=== PATIENT | female | born 1945 | race Caucasian/White ===

== ENCOUNTER → 2024-07-25 | Outpatient (REF) | payer MEDICARE, SELFPAY ==
[2024-07-25 09:07] LABS: Hematocrit 40.8 % (37-47); Hemoglobin 12.6 g/dL (12.0-15.0); Mean Corp Hgb Conc 30.9 g/dL (32-36); Mean Corpuscular Hgb 27.2 pg (27.0-32.0); Mean Corpuscular Volume 87.9 fL (81-99); Mean Platelet Vol. 9.3 fl (6.2-12.0); Platelet Count 368 K/mm3 (150-450); RBC Distribution Width CV 16.2 % (11.6-14.6); RBC Distribution Width SD 52.3 fl (35.1-43.9); Red Blood Count 4.64 M/mm3 (4.2-5.4); White Blood Count 9.1 K/mm3 (4.4-11.0)
[2024-07-25 09:42] LABS: ALB/GLOB Ratio 1.1 RATIO (0.9-2.4); AST(SGOT) 11 U/L (15-37); Alanine Aminotransfer ALT/SGPT 9 U/L (13-56); Albumin, Serum 3.4 g/dL (3.2-5.0); Alkaline Phosphatase 55 U/L (45-117); Anion Gap 8 (5-15); BUN 19 mg/dL (7-18); BUN/Creat Ratio 28.7 RATIO (10-20); Chloride 111 mmol/L (98-107); Creatinine, Serum 0.66 mg/dL (0.55-1.02); EST Glomerular Filtration Rate 91 mL/min (>60); Est Glom Filt Rate - Afr Amer 110 mL/min (>60); Glucose 87 mg/dL (74-106); Potassium 3.3 mmol/L (3.5-5.1); Protein, Total 6.4 g/dL (6.4-8.2); Sodium Level 144 mmol/L (136-145)
== END ==
LOC: OLS.ACW100 05:00
PROVIDERS: Visit Provider Internal Medicine
DX: I63.532 Cerebral infarction due to unspecified occlusion or stenosis of left posterior cerebral artery (principal); G93.41 Metabolic encephalopathy; F33.0 Major depressive disorder, recurrent, mild; C50.411 Malignant neoplasm of upper-outer quadrant of right female breast
CPT/HCPCS: 36415; 80053; 85027

== ENCOUNTER → 2025-03-27 05:00 | Outpatient (REF) | payer MEDICARE, SELFPAY ==
--- OUTSIDE RECORDS SUMMARY | 2025-03-27 04:12 | XMS RPT_ITS | CCD ---
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 Role Phone Mack Olivares Attending Unavailable Problems Problem Classification Problem Date Documented Da te Episodic/Chronic Acute cerebrovascular disease (1 source) Cerebral infarction due to unspecified occlusion or stenosis of left posterior cerebral artery; Translations: [Cerebral infarction due to unspecified occlusion or stenosis of left posterior cerebral artery] Onset: 09-13-2024 Chronic Cancer of breast (1 source) Malignant neoplasm of upper-outer quadrant of right female breast; Translations: [Malignant neoplasm of upper-outer quadrant of right female breast] Onset: 09-13-2024 Chronic Mood disorders (1 source) Major depressive disorder, recurrent, mild; Translations: [Major depressive disorder, recurrent, mild] Onset: 09-13-2024 Chronic Other nervous system disorders (1 source) Metabolic encephalopathy; Translations: [Metabolic encephalopathy] Onset: 09-13-2024 Chronic Encounters Encounter Date Encounter Type Care Provider Facility Start: 07-25-2024 End: 07-25-2024 ambulatory Mack MALIK Facility:[facility] Payers Date Payer Category Payer Medicare [id number] 2024 Self-pay Unknown [id number] Summary Purpose Family History No Family History Records Found Advance Directives No Advanced Directives Records Found Additional Source Comments INFORMATION SOURCE (unrecogn ized section and content) DATE CREATED AUTHOR 09/16/2024 [facility] FOR RECORDS PERTAINING TO PATIENTS WHO ARE OR HAVE BEEN ENROLLED IN A CHEMICAL DEPENDENCY/SUBSTANCEABUSE PROGRAM, SOME INFORMATION MAY BE OMITTED. This clinical summary was aggregated from multiple sources. Caution should be exercised in using it in the provision of clinical care. This summary normalizes information from multiple sources, and as a consequence, information in this document may materially change the coding, format and clinical context of patient data. In addition, data may be omitted in some cases. CLINICAL DECISIONS SHOULD BE BASED ON THE PRIMARY CLINICAL RECORDS. [facility] [employer] [facility]. provides no warranty or guarantee of the accuracy or completeness of information in this document.
[2025-03-27 08:58] LABS: Hematocrit 25.3 % (37-47); Hemoglobin 8.1 g/dL (12.0-15.0); Mean Corpuscular Hgb 29.2 pg (27.0-32.0); Mean Corpuscular Volume 91.3 fL (81-99); Mean Platelet Vol. 8.8 fl (6.2-12.0); Platelet Count 516 K/mm3 (150-450); RBC Distribution Width CV 16.1 % (11.6-14.6); RBC Distribution Width SD 52.3 fl (35.1-43.9); Red Blood Count 2.77 M/mm3 (4.2-5.4); White Blood Count 8.8 K/mm3 (4.4-11.0)
[2025-03-27 09:22] LABS: ALB/GLOB Ratio 1.7 RATIO (0.9-2.4); AST(SGOT) 23 U/L (<=31); Alanine Aminotransfer ALT/SGPT < 5 U/L (<=34); Albumin, Serum 3.6 g/dL (3.4-4.8); Alkaline Phosphatase 52 U/L (35-104); Anion Gap 10 (5-15); BUN 10 mg/dL (4-19); BUN/Creat Ratio 16.8 RATIO (10-20); Calcium,Total 8.6 mg/dL (7.6-11.0); Carbon Dioxide 23.7 mmol/L (21.0-32.0); Chloride 107 mmol/L (98-108); Creatinine, Serum 0.58 mg/dL (0.70-1.20); EST Glomerular Filtration Rate 92 (>60); Globulin 2.1 g/dL (2.2-4.2); Glucose 94 mg/dL (70-99); Potassium 3.7 mmol/L (3.3-5.1); Protein, Total 5.7 g/dL (5.9-8.4); Sodium Level 140 mmol/L (133-145); Thyroid Stim Hormone (TSH) 0.657 uIU/mL (0.300-4.200); Total Bilirubin 0.83 mg/dL (0.00-1.30)
[2025-03-28 08:24] LABS: Color, Urine Yellow (Yellow); Glucose, Dipstick Normal (Normal); Ketone-Dipstick Negative (Negative); Leukocyte Esterase-Dipstick 500 /ul (Negative); Nitrite-Dipstick Negative (Negative); Occult Blood-Urine 25 /ul (Negative); Protein-Dipstick 30 mg/dl (Negative); Urine Bilirubin Dipstick Negative (Negative); Urine Clarity Sl. Cloudy (Clear); Urine Urobilinogen 4 mg/dl (Normal); Urine pH 6.5 (5.0 - 8.0)
== END ==
LOC: OLS.ACW400 05:00
PROVIDERS: Visit Provider Internal Medicine
DX: I63.532 Cerebral infarction due to unspecified occlusion or stenosis of left posterior cerebral artery (principal); G93.41 Metabolic encephalopathy; F33.0 Major depressive disorder, recurrent, mild; C50.411 Malignant neoplasm of upper-outer quadrant of right female breast
CPT/HCPCS: 36415; 80053; 81002; 84443; 85027; 87086; 87088

== ENCOUNTER → 2025-04-04 05:00 | Outpatient (REF) | payer MEDICARE, SELFPAY ==
--- OUTSIDE RECORDS SUMMARY | 2025-04-04 04:22 | XMS RPT_ITS | CCD ---
Author Organization [facility] CliniSymi Care Team Providers Care Materials Management Manager Name Role Phone Mack Olivares Attending Unavailable Mack Olivares Attending Unavailable Problems Problem Classification [...] Date Encounter Type Care Provider Facility Start: 03-27-2025 ambulatory Mack MALIK Faci lity:[facility] Start: 07-25-2024 End: 07-25-2024 ambulatory Mack MALIK Facility:[facility] Payers Date Payer Category Payer Medicare [id number] 2024 Self-pay Unknown [id number] Unknown [id number] Summary Purpose Family History No Family History Records Found Advance Directives No Advanced Directives Records Found Additional Source Comments INFORMATION SOURCE (unrecogn ized section and content) DATE CREATED AUTHOR 03/28/2025 [facility] FOR RECORDS PERTAINING TO PATIENTS WHO ARE [...] BE BASED ON THE PRIMARY CLINICAL RECORDS. [facility]. provides no warranty or guarantee of the accuracy or completeness of information in this document.
--- OUTSIDE RECORDS SUMMARY | 2025-04-04 04:22 | XMS RPT_ITS | CCD ---
Author Organization [facility] CliniSyde Care Team Providers Care [employer] Advisor Name Role Phone Mack Olivares Attending Unavailable [...] Facility Start: 03-27-2025 ambulatory Mack MALIK Faci lity:[facility] Start: 07-25-2024 End: 07-25-2024 ambulatory Mack MALIK Facility:[facility] Payers Date Payer Category Payer Medicare [id number] 2024 Self-pay Unknown [id number] Unknown [id number] Summary Purpose Family History No Family History Records Found Advance Directives No Advanced Directives Records Found Additional Source Comments INFORMATION SOURCE (unrecogn ized section and content) DATE CREATED AUTHOR 03/28/2025 [facility] FOR RECORDS PERTAINING TO PATIENTS WHO ARE [...] BE BASED ON THE PRIMARY CLINICAL RECORDS. [facility]. provides no warranty or guarantee of the accuracy or completeness of information in this document.
[2025-04-04 07:03] LABS: Hemoglobin 8.4 g/dL (12.0-15.0); Mean Corp Hgb Conc 31.1 g/dL (32-36); Mean Corpuscular Hgb 29.1 pg (27.0-32.0); Mean Corpuscular Volume 93.4 fL (81-99); Mean Platelet Vol. 9.1 fl (6.2-12.0); Platelet Count 501 K/mm3 (150-450); RBC Distribution Width CV 17.4 % (11.6-14.6); RBC Distribution Width SD 59.2 fl (35.1-43.9); Red Blood Count 2.89 M/mm3 (4.2-5.4); White Blood Count 7.8 K/mm3 (4.4-11.0)
[2025-04-04 07:34] LABS: Anion Gap 10 (5-15); BUN 14 mg/dL (4-19); BUN/Creat Ratio 24.7 RATIO (10-20); Calcium,Total 8.6 mg/dL (7.6-11.0); Carbon Dioxide 23.6 mmol/L (21.0-32.0); Chloride 108 mmol/L (98-108); Creatinine, Serum 0.58 mg/dL (0.70-1.20); EST Glomerular Filtration Rate 92 (>60); Glucose 87 mg/dL (70-99); Potassium 3.9 mmol/L (3.3-5.1); Sodium Level 141 mmol/L (133-145); Vitamin B12 686 pg/mL (180-914)
[2025-04-04 07:51] LABS: Iron 43 ug/dL (50-170); Iron Binding Capacity,Unsat 195 ug/dL (228-428)
[2025-04-04 08:05] LABS: Iron Binding Capacity,Total 238 ug/dL (250-450); PERCENT IRON SATURATION 18.1 % (13-59)
== END ==
LOC: OLS.ACW400 05:00
PROVIDERS: Visit Provider Internal Medicine
DX: I63.532 Cerebral infarction due to unspecified occlusion or stenosis of left posterior cerebral artery (principal); G93.41 Metabolic encephalopathy; C50.411 Malignant neoplasm of upper-outer quadrant of right female breast; F33.0 Major depressive disorder, recurrent, mild
CPT/HCPCS: 36415; 80048; 82607; 82746; 83540; 83550; 85027

== ENCOUNTER → 2025-04-27 14:30 | Outpatient (REF) | payer MEDICARE, SELFPAY | LOC: OLS.ACW400 14:30 | PROVIDERS: Visit Provider Internal Medicine | DX: I63.532 Cerebral infarction due to unspecified occlusion or stenosis of left posterior cerebral artery (principal); G93.41 Metabolic encephalopathy; R26.81 Unsteadiness on feet; R53.1 Weakness; R27.9 Unspecified lack of coordination | CPT/HCPCS: 82274 ==

== ENCOUNTER → 2025-05-02 11:30 | Outpatient (REF) | payer MEDICARE, SELFPAY | LOC: OLS.ACW400 11:30 | PROVIDERS: Visit Provider Internal Medicine | DX: I63.532 Cerebral infarction due to unspecified occlusion or stenosis of left posterior cerebral artery (principal); G93.41 Metabolic encephalopathy; R26.81 Unsteadiness on feet; R53.1 Weakness; R27.9 Unspecified lack of coordination | CPT/HCPCS: 82274 ==

== ENCOUNTER → 2025-05-08 05:00 | Outpatient (REF) | payer MEDICARE, SELFPAY ==
--- OUTSIDE RECORDS SUMMARY | 2025-05-08 04:11 | XMS RPT_ITS | CCD ---
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 Name Role Phone Mack Olivares Attending Unavailable Mack Olivares Attending Unavailable Mack Olivares Attending Unavailable Mack Olivares Attending Unavailable Mack Olivares Attending Unavailable Problems Problem Classification Problem Date Documented Da te Episodic/Chronic Acute cerebrovascular disease (2 sources) Cerebral infarction due to unspecified occlusion or stenosis of left posterior cerebral artery; Translations: [Cerebral infarction due to unspecified occlusion or stenosis of left posterior cerebral artery] Onset: 09-13-2024 Chronic Cancer of breast (2 sources) Malignant neoplasm of upper-outer quadrant of right female breast; Translations: [Malignant neoplasm of upper-outer quadrant of right female breast] Onset: 09-13-2024 Chronic Mood disorders (1 source) Major depressive disorder, recurrent, mild; Translations: [Major depressive disorder, recurrent, mild] Onset: 09-13-2024 Chronic Other nervous system disorders (2 sources) Metabolic encephalopathy; Translations: [Metabolic encephalopathy] Onset: 09-13-2024 Chronic Encounters Encounter Date Encounter Type Care Provider Facility Start: 05-02-2025 ambulatory Mack MALIK Faci lity:[facility] Start: 04-27-2025 ambulatory Mack MALIK Faci lity:[facility] Start: 04-04-2025 ambulatory Mack MALIK Faci lity:[facility] Start: 03-27-2025 ambulatory Mack MALIK Faci lity:[facility] Start: 07-25-2024 End: 07-25-2024 ambulatory Mack MALIK Facility:[facility] Payers Date Payer Category Payer Medicare [id number] 2024 Self-pay Unknown [id number] Unknown [id number] Unknown [id number] Unknown [id number] Unknown [id number] Summary Purpose Family History No Family History Records Found Advance Directives No Advanced Directives Records Found Additional Source Comments INFORMATION SOURCE (unrecogn ized section and content) DATE CREATED AUTHOR 05/06/2025 [facility] FOR RECORDS PERTAINING TO PATIENTS WHO ARE [...] BE BASED ON THE PRIMARY CLINICAL RECORDS. [employer]. provides no warranty or guarantee of the accuracy or completeness of information in this document.
[2025-05-08 08:06] LABS: Hematocrit 35.0 % (37-47); Hemoglobin 11.1 g/dL (12.0-15.0); Mean Corp Hgb Conc 31.7 g/dL (32-36); Mean Corpuscular Volume 90.2 fL (81-99); Mean Platelet Vol. 9.1 fl (6.2-12.0); Platelet Count 425 K/mm3 (150-450); RBC Distribution Width CV 15.6 % (11.6-14.6); RBC Distribution Width SD 51.7 fl (35.1-43.9); Red Blood Count 3.88 M/mm3 (4.2-5.4); White Blood Count 6.5 K/mm3 (4.4-11.0)
[2025-05-08 09:00] LABS: Anion Gap 8 (5-15); BUN 14 mg/dL (4-19); BUN/Creat Ratio 22.3 RATIO (10-20); Calcium,Total 8.9 mg/dL (7.6-11.0); Carbon Dioxide 24.7 mmol/L (21.0-32.0); Chloride 109 mmol/L (98-108); Glucose 86 mg/dL (70-99); Potassium 4.2 mmol/L (3.3-5.1)
== END ==
LOC: OLS.ACW400 05:00
PROVIDERS: Visit Provider Internal Medicine
DX: G93.41 Metabolic encephalopathy (principal); I63.532 Cerebral infarction due to unspecified occlusion or stenosis of left posterior cerebral artery; R26.81 Unsteadiness on feet; R53.1 Weakness
CPT/HCPCS: 36415; 80048; 85027

== ENCOUNTER → 2025-08-03 05:00 | Outpatient (REF) | payer MEDICARE, SELFPAY ==
[2025-08-03 08:48] LABS: Hematocrit 39.2 % (37-47); Hemoglobin 12.5 g/dL (12.0-15.0); Mean Corp Hgb Conc 31.9 g/dL (32-36); Mean Corpuscular Volume 86.7 fL (81-99); Mean Platelet Vol. 9.0 fl (6.2-12.0); Platelet Count 459 K/mm3 (150-450); RBC Distribution Width CV 16.4 % (11.6-14.6); RBC Distribution Width SD 52.2 fl (35.1-43.9); Red Blood Count 4.52 M/mm3 (4.2-5.4); White Blood Count 9.1 K/mm3 (4.4-11.0)
[2025-08-03 10:04] LABS: Cholesterol 104 mg/dL (<=200); Low Density Lipoprotein Calc. 42 mg/dL; Triglycerides 40 mg/dL; Very Low Density Lipoprotein 8 mg/dL (5-40); cholesterol:hdl ratio screen 1.92
[2025-08-03 10:07] LABS: AST(SGOT) 17 U/L (<=31); Alanine Aminotransfer ALT/SGPT < 5 U/L (<=34); Albumin, Serum 3.7 g/dL (3.4-4.8); Alkaline Phosphatase 59 U/L (35-104); Anion Gap 10 (5-15); BUN 18 mg/dL (4-19); BUN/Creat Ratio 28.5 RATIO (10-20); Calcium,Total 8.8 mg/dL (7.6-11.0); Carbon Dioxide 24.2 mmol/L (21.0-32.0); Chloride 108 mmol/L (98-108); Globulin 2.2 g/dL (2.2-4.2); Glucose 92 mg/dL (70-99); Potassium 4.2 mmol/L (3.3-5.1)
== END ==
LOC: OLS.ACW400 05:00
PROVIDERS: Visit Provider Internal Medicine
DX: I63.532 Cerebral infarction due to unspecified occlusion or stenosis of left posterior cerebral artery (principal); G93.41 Metabolic encephalopathy; R26.81 Unsteadiness on feet; R53.1 Weakness; R27.9 Unspecified lack of coordination
CPT/HCPCS: 36415; 80053; 80061; 85027